=== PATIENT | male | born 1980 | race Caucasian/White ===

== ENCOUNTER 2016-11-02 12:04 | Emergency (ER) | payer OTHER ==
[~2016-11-02 12:04] MED LIST: ATIVAN0.5 MG PO; LAMICTAL200 M2 PO; MIRTAZAPINE15 MG PO; NALTREXONE HYDR50 MG PO
[2016-11-02] MEDS ORDERED: NALTREXONE HCL50 MG PO (12:31)
[2016-11-02] MEDS ORDERED: LEXAPRO5 M1 (12:31)
[2016-11-02] MEDS ORDERED: MELATONIN10 M4 PO (12:32)
[2016-11-02 13:04] LABS: BASO % 0.2 % (0-2); EOS % 0.6 % (0-7); HCT-HEMATOCRIT 41.8 % (36.0-53.5); HGB-HEMOGLOBIN 14.4 gm/dl (13.5-17.0); LYMPH % 28.5 % (20-45); LYMPH ABSOLUTE COUNT 1.4 tho/cmm (0.8-4.5); MCH (MEAN CORPUSCULAR HGB) 29.9 pg (28.0-32.0); MCHC MEAN CORPUSCULAR HGB CONC 34.4 % (32.0-36.0); MCV (MEAN CELL VOLUME) 86.9 fl (82.0-96.0); MEAN PLATELET VOLUME 8.9 cmc (9.4-12.4); MONO % 15.2 % (0-12); MONOCYTE ABSOLUTE COUNT 0.7 tho/cmm (0.0-1.2); NEUTROPHIL ABSOLUTE COUNT 2.6 tho/cmm (1.6-8.0); NEUTROPHIL-AUTOMATED 2.6 tho/cmm (1.6-8.0); NEUTROPHILS % 55.5 % (40-80); PLATELET COUNT 192 tho/cmm (150-450); RED BLOOD COUNT 4.81 mil/cmm (4.40-5.70); WHITE BLOOD COUNT 4.7 tho/cmm (4.0-10.0)
[2016-11-02 13:16] LABS: ANION GAP 13 mmol/L (0-20); BLOOD UREA NITROGEN 9 mg/dl (6-24); CALCIUM 8.2 mg/dl (8.5-10.5); CARBON DIOXIDE-VENOUS 27 mmol/L (22-32); CHLORIDE 103 mmol/l (96-110); CREATININE 1.03 mg/dl (0.60-1.30); GLUCOSE 98 mg/dL (70-110); POTASSIUM 4.5 mmol/L (3.7-5.1); SODIUM 138 mmol/L (135-145); eGFR VALUE FOR BLACK >90 mL/Min
[2016-11-02 13:27] LABS: ESR-ERYTHROCYTE SED RATE 8 mm/hr (0-15)
[2016-11-02] MEDS ORDERED: AUGMENTIN 875-1 EAC2 PO (13:58)
[2016-11-02] MEDS ORDERED: COMPAZINE10 MG PO (13:58)
== END 2016-11-02 14:29 ==
LOC: EDMED 12:04
PROVIDERS: Emergency Medicine
DX: J01.20 Acute ethmoidal sinusitis, unspecified (principal); J32.2 Chronic ethmoidal sinusitis
CPT/HCPCS: J1200; J1885; J2765; J7030